=== PATIENT | female | born 1985 | race Caucasian/White ===

== ENCOUNTER → 2017-07-02 19:19 | Outpatient (CLI) | payer OTHER, SELFPAY ==
[2017-07-07 14:42] LABS: HPV APTIMA, High Risk Negative (Negative)
== END ==
PROVIDERS: Visit Provider Obstetrics & Gynecology
DX: Z12.4 Encounter for screening for malignant neoplasm of cervix (principal)
CPT/HCPCS: 88175; G0145

== ENCOUNTER → 2017-12-03 11:56 | Outpatient (CLI) | payer OTHER, SELFPAY ==
[2017-12-03 18:11] LABS: Chlamydia Trachomatis by PCR Negative (Negative); Neisserai gonorrhoeae by PCR Negative (Negative); Probe Check PASS; Sample Adequacy Control PASS; Specimen Processing Control PASS
== END ==
PROVIDERS: Visit Provider Obstetrics & Gynecology
DX: Z11.3 Encounter for screening for infections with a predominantly sexual mode of transmission (principal)
CPT/HCPCS: 87491; 87591

== ENCOUNTER → 2017-12-18 11:10 | Outpatient (CLI) | payer OTHER, SELFPAY ==
[2017-12-18 13:42] LABS: Color, Urine Straw (Yellow); Glucose, Dipstick Normal (Normal); Ketone-Dipstick Negative (Negative); Leukocyte Esterase-Dipstick Negative /ul (Negative); Nitrite-Dipstick Negative (Negative); Occult Blood-Urine Negative /ul (Negative); Protein-Dipstick Negative (Negative); Specific Gravity, Urine 1.015 (1.002-1.030); Urine Bilirubin Dipstick Negative (Negative); Urine Clarity Clear (Clear); Urine Urobilinogen Normal (Normal)
[2017-12-18 13:47] LABS: Absolute Lymphocyte Count 1.88 X10^3/ul (0.83-4.51); Absolute Neutrophil Count 4.1 X10^3/uL (2.0-7.7); Basophil# 0.01 X10^3/uL; Basophil% 0.1 % (0-1); Eosinophil# 0.04 X10^3/uL; Eosinophils% 0.6 % (0-5); Hematocrit 39.4 % (37-47); Hemoglobin 13.5 g/dl (12.0-15.0); Lymphocyte # 1.88 X10^3/ul (4.0); Lymphocyte % 27.7 % (19-41); Mean Corp Hgb Conc 34.3 g/gl (32-36); Mean Corpuscular Volume 87.6 fL (81-99); Monocyte% 11.8 % (0-10); Neutrophil # 4.06 X10^3/uL (2.7-7.7); Neutrophil % 59.8 % (47-70); POSITIVE COUNT NO; POSITIVE DIFFERENTIAL NO; POSITIVE MORPHOLOGY NO; Platelet Count 198 K/mm3 (150-450); RBC Distribution Width CV 12.7 % (11.6-14.6); RBC Distribution Width SD 39.5 fl (35.1-43.9); White Blood Count 6.8 K/mm3 (4.4-11.0)
[2017-12-18 14:06] LABS: Thyroid Stim Hormone (TSH) 0.94 uIU/mL (0.358-3.74)
[2017-12-18 14:19] LABS: Amphetamine Urine VISTA NEGATIVE (<1000 ng/mL); Barbiturate Urine VISTA NEGATIVE (< 200 ng/mL); Benzodiazepine Urine VISTA NEGATIVE (< 200 ng/mL); Cocaine Urine VISTA NEGATIVE (< 300 ng/mL); Ecstacy Urine VISTA NEGATIVE (< 500 ng/mL); Methadone Urine VISTA NEGATIVE (< 300 ng/mL); PCP Urine VISTA NEGATIVE (< 25 ng/mL); THC Urine VISTA NEGATIVE (< 50 ng/mL); Vista UDS pH Range 5
[2017-12-18 15:02] LABS: HIV - WCH Non-Reactive (Nonreactive); Rubella IgG 33.4 IU/mL
[2017-12-21 12:43] LABS: HEPATITIS B SURFACE AG Negative (Negative); Hep C Antibodies 0.1 s/co ratio (0.0-0.9)
[2017-12-25 03:42] LABS: Prenatal RPR NONREACTIVE (NONREACTIVE)
== END ==
PROVIDERS: Visit Provider Obstetrics & Gynecology
DX: Z34.81 Encounter for supervision of other normal pregnancy, first trimester (principal)
CPT/HCPCS: 36415; 80307; 81002; 84443; 85025; 86703; 86762; 86803; 87340

== ENCOUNTER → 2018-05-03 16:16 | Outpatient (CLI) | payer OTHER, SELFPAY ==
[2018-05-03 17:51] LABS: Hematocrit 35.6 % (37-47); Hemoglobin 11.9 g/dl (12.0-15.0); Mean Corp Hgb Conc 33.4 g/gl (32-36); Mean Corpuscular Volume 92.7 fL (81-99); Mean Platelet Vol. 10.4 fl (6.2-12.0); Platelet Count 177 K/mm3 (150-450); RBC Distribution Width CV 13.5 % (11.6-14.6); RBC Distribution Width SD 45.2 fl (35.1-43.9); Red Blood Count 3.84 M/mm3 (4.2-5.4)
[2018-05-03 18:03] LABS: Scan Indicated on CBC? Y/N NO
[2018-05-03 18:07] LABS: Glucose Challenge Gest 1H 50g 127 mg/dL (70-140)
== END ==
PROVIDERS: Visit Provider Obstetrics & Gynecology
DX: Z34.83 Encounter for supervision of other normal pregnancy, third trimester (principal)
CPT/HCPCS: 36415; 82950; 85027

== ENCOUNTER → 2018-07-01 17:52 | Outpatient (CLI) | payer OTHER, SELFPAY | PROVIDERS: Family Provider Family Medicine; PCP Family Medicine; Referring Provider Obstetrics & Gynecology; Visit Provider Obstetrics & Gynecology | DX: Z36.85 Encounter for antenatal screening for Streptococcus B (principal) | CPT/HCPCS: 87081 ==

== ENCOUNTER 2018-07-25 05:38 | Inpatient (IN) | payer OTHER, SELFPAY ==
[2018-07-25 04:46] VITALS: BMI 25.4
[2018-07-25 05:36] LABS: ROM Internal Control Test YES-OK TO RESULT pt. (Internal QC)
[2018-07-25 05:37] LABS: ROM Patient Test POSITIVE (Negative); Record Kit Lot#, ROM+ J7836
[2018-07-25] MEDS: Lactated Ringers 1,000 ML 50 ML IV ×4 (06:10→17:50)
[2018-07-25 06:57] LABS: Absolute Lymphocyte Count 1.96 X10^3/ul (0.83-4.51); Absolute Neutrophil Count 13.7 X10^3/uL (2.0-7.7); Basophil# 0.01 X10^3/uL; Basophil% 0.1 % (0-1); Eosinophil# 0.03 X10^3/uL; Eosinophils% 0.2 % (0-5); Hematocrit 38.1 % (37-47); Hemoglobin 12.8 g/dl (12.0-15.0); Lymphocyte # 1.96 X10^3/ul (4.0); Lymphocyte % 10.6 % (19-41); Mean Corp Hgb Conc 33.6 g/gl (32-36); Mean Corpuscular Hgb 30.3 pg (27.0-32.0); Mean Corpuscular Volume 90.1 fL (81-99); Mean Platelet Vol. 11.3 fl (6.2-12.0); Monocyte# 2.79 X10^3/uL; Monocyte% 15.1 % (0-10); Neutrophil # 13.69 X10^3/uL (2.7-7.7); Neutrophil % 73.7 % (47-70); Platelet Count 210 K/mm3 (150-450); RBC Distribution Width CV 13.7 % (11.6-14.6); RBC Distribution Width SD 44.8 fl (35.1-43.9); Red Blood Count 4.23 M/mm3 (4.2-5.4); White Blood Count 18.5 K/mm3 (4.4-11.0)
[2018-07-25 06:58] LABS: Differential Indicated SCAN CRITERIA MET; POSITIVE COUNT NO; POSITIVE DIFFERENTIAL YES; POSITIVE MORPHOLOGY NO
[2018-07-25] MEDS: fentaNYL-bupivacaine (epidural) 100 ML BAG EPIDURAL ×2 (08:55→13:30)
--- NOTE | 2018-07-25 09:59 | PN.OBGYN_ITS ---
Subjective: Cervix examined and noted to be dimple from prior cervical procedure likely LEEP per patient history. Examination revealed band and this was relieved with cervical examination. Cervix now 4-5 cm 95% 0 station. IUPC placed. Epidural working well for her. Anticipate spontaneous vaginal delivery. - Physical Exam Weight: 144 lb Body Mass Index (BMI) 25.4 Laboratory Tests Past 24 Hrs 07/25/18 07/25/18 07/25/18 04:35 06:10 06:10 WBC 18.5 H RBC 4.23 Hgb 12.8 Hct 38.1 MCV 90.1 MCH 30.3 MCHC 33.6 RDW 13.7 RDW Differential 44.8 H Plt Count 210 MPV 11.3 Immature Gran % (Auto) 0.300 Neut % (Auto) 73.7 H Lymph % (Auto) 10.6 L [place] % (Auto) 15.1 H Eos % (Auto) 0.2 Baso % (Auto) 0.1 Absolute Neuts (auto) 13.7 H Absolute Lymphs (auto) 1.96 Total Counted Not Reportable Differential Comment Vag Amniotic Fld Detect POSITIVE H Blood Type O POSITIVE Antibody Screen NEGATIVE Medical Necessity - Tobacco Use Smoking Status: Never smoker
[2018-07-25] MEDS: Mag Hydrox/Al Hydrox/Simeth 30 ML UDC PO (15:13)
[2018-07-25] MEDS: Oxytocin 30 units/NS 500 ml 30 UNITS/500 ML IV.SOLN IV (16:49)
[2018-07-25] MEDS: Oxytocin 30 units/NS 500 ml 30 UNITS/500 ML IV.SOLN 334 UNITS IV (19:19)
--- NOTE | 2018-07-25 19:36 | PCM.OPRPT ---
Vaginal Delivery Maternal Presentation: Active Labor, Spontaneous Rupture of Membranes Amniotic Membrane Rupture Type: Spontaneous at home Amniotic Fluid Description: Clear Final TORI: 07/25/18 Final TORI Source: US <20 weeks Gestational age: 40 Weeks and 0 Days doctor who attended delivery (if requested by OB): Addis Zapien Vacuum assist Date of Procedure: 07/25/18 Pre-Operative Diagnosis: IUP Post-Operative Diagnosis: IUP Surgery/ Procedure Performed: Spontaneous Vaginal Delivery, Vacuum Assisted Vaginal Delivery Type of Anesthesia: Epidural Description of Procedure: Spontaneous vaginal delivery of a viable male with Apgars of 8/9 from an occiput anterior presentation with clear amniotic fluid and normal three-vessel placenta. Cord around the neck x1 loose. No episiotomy. Third-degree midline laceration repaired in layers with 3-0 Rapide and Vicryl under epidural. Kiwi vacuum used x6 gentle pulls from low outlet with no pop offs to assist with delivery of the head due to increasing maternal fatigue after approximately 4 hours of pushing. Sponges okay. Delivery physician: Shivam Fuentes MD. Presentation: Vertex Placental Delivery Description: Spontaneous Placenta Disposition: [facility] Cord Vessel Description: 3 Vessels Cord Gases drawn per routine: ABG Cord Entanglement: Around neck x 1, loose Drain: Iglesias to straight drain Estimated Blood Loss: 400 cc Infant A gender: Male (1 minute): 8 (5 minute): 9 Episiotomy Description: None Laceration: Midline, Perineal Extension/lac, 3rd degree Medications given after delivery: IV Pitocin Complications: None
[2018-07-25] MEDS: Lactated Ringers 1,000 ML 999 ML IV (19:38)
[2018-07-25] MEDS: Oxytocin 30 units/NS 500 ml 30 UNITS/500 ML IV.SOLN 167 UNITS IV (19:39)
[2018-07-25] MEDS: Ibuprofen 600 MG Tablet PO (22:18)
[2018-07-25] MEDS: 0.9% Saline Lock 10 ML Syringe IV (22:19)
[2018-07-26 01:40] VITALS: BP 114/59; PULSE 82; RESP 16; TEMP 36.2
[2018-07-26 05:30] VITALS: BP 104/56; PULSE 86; RESP 16; TEMP 36.7
[2018-07-26 06:34] LABS: Hematocrit 31.9 % (37-47); Hemoglobin 10.5 g/dl (12.0-15.0); Mean Corp Hgb Conc 32.9 g/gl (32-36); Mean Corpuscular Hgb 29.7 pg (27.0-32.0); Mean Corpuscular Volume 90.4 fL (81-99); Mean Platelet Vol. 10.8 fl (6.2-12.0); Platelet Count 239 K/mm3 (150-450); RBC Distribution Width CV 13.8 % (11.6-14.6); RBC Distribution Width SD 45.4 fl (35.1-43.9); Red Blood Count 3.53 M/mm3 (4.2-5.4)
[2018-07-26 06:44] LABS: Scan Indicated on CBC? Y/N YES- FLAGS NOTED
[2018-07-26 06:45] LABS: White Blood Count 36.7 K/mm3 (4.4-11.0)
[2018-07-26 07:06] LABS: Differential Comment SCANNED
[2018-07-26 07:40] VITALS: BP 108/54; PULSE 112; PULSE 84; RESP 16; TEMP 37.4; O2SAT 98
--- NOTE | 2018-07-26 07:40 | PCM.PN.OB ---
Subjective: Perineum is sore. Reports heavy lochia however not saturated after 2 hours. She is nursing, latching well. No fever, chills. OOB, voiding without difficulty. Objective: AVSS - Physical Exam General: Alert, Oriented x3, Cooperative, No apparent distress HEENT: Atraumatic, Normocephalic Lungs: Normal air movement Cardiovascular: Regular Rhythm Abdomen: Soft, Non Tender, Non-Distended, - - Fundus firm and nontender, lochia scant, vulvar edema present Extremities: No edema, No Calf Tenderness Neurological: Neuro grossly intact Psych/Mental Status: Normal Affect, Appropriate, Alert and oriented to time, place, person, mood and affect Vital Signs Temp Pulse Resp BP 98.1 F 86 16 104/56 L 07/26/18 05:30 07/26/18 05:30 07/26/18 05:30 07/26/18 05:30 Oxygen Delivery Method Room Air Weight: 65.317 kg Body Mass Index (BMI) 25.4 Intake and Output for Last 24 Hours 07/24/18 07/25/18 07/26/18 23:59 23:59 23:59 Intake Total 3620 / 3620 Output Total 1500 / 1500 3900 / 3900 Balance 2120 / 2120 -3900 / -3900 Laboratory Tests Past 24 Hrs 07/25/18 07/26/18 06:10 06:15 WBC 36.7 H* RBC 3.53 L Hgb 10.5 L Hct 31.9 L MCV 90.4 MCH 29.7 MCHC 32.9 RDW 13.8 RDW Differential 45.4 H Plt Count 239 MPV 10.8 Differential Comment SCANNED Diff Path Review May foll Blood Type O POSITIVE Antibody Screen NEGATIVE Medical Necessity - Tobacco Use Smoking Status: Never smoker Assessment/Plan 33yo PPD#1 s/p VAVD with 3rd degree perineal laceration - -Rh positive, Rubella immune -Ambulation encouraged -Discussed perineal care -Routine care -Leukocytosis likely 2/2 labor, delivery - no prolonged rupture or evidence of infection, plan repeat cbc in am
--- NOTE | 2018-07-26 11:20 | NURSING ---
The Pt c/o sore nipples. This student nurse provided Pt with nipple cream.
[2018-07-26 11:45] LABS: Pathologist Review Reviewed
[2018-07-26 13:00] VITALS: BP 122/74; PULSE 80; RESP 18; TEMP 36.7; O2SAT 97
[2018-07-26 16:08] VITALS: BP 116/62; PULSE 80; RESP 17; TEMP 36.9; O2SAT 97
[2018-07-26 20:50] VITALS: BP 116/70; PULSE 82; RESP 18; TEMP 36.7
[2018-07-26] MEDS: Ibuprofen 600 MG Tablet PO (23:55)
[2018-07-27 01:48] VITALS: BP 104/50; PULSE 76; RESP 18; TEMP 36.6
[2018-07-27 05:55] LABS: Absolute Lymphocyte Count 3.64 X10^3/ul (0.83-4.51); Absolute Neutrophil Count 11.8 X10^3/uL (2.0-7.7); Basophil# 0.03 X10^3/uL; Basophil% 0.2 % (0-1); Eosinophil# 0.26 X10^3/uL; Eosinophils% 1.5 % (0-5); Hematocrit 26.4 % (37-47); Hemoglobin 8.7 g/dl (12.0-15.0); Lymphocyte # 3.64 X10^3/ul (4.0); Lymphocyte % 20.4 % (19-41); Mean Corpuscular Hgb 30.7 pg (27.0-32.0); Mean Corpuscular Volume 93.3 fL (81-99); Mean Platelet Vol. 10.1 fl (6.2-12.0); Monocyte# 1.98 X10^3/uL; Monocyte% 11.1 % (0-10); Neutrophil # 11.82 X10^3/uL (2.7-7.7); Neutrophil % 66.2 % (47-70); Platelet Count 200 K/mm3 (150-450); RBC Distribution Width CV 13.6 % (11.6-14.6); RBC Distribution Width SD 45.1 fl (35.1-43.9); Red Blood Count 2.83 M/mm3 (4.2-5.4); White Blood Count 17.8 K/mm3 (4.4-11.0)
[2018-07-27 06:00] LABS: Differential Indicated SCAN CRITERIA MET; POSITIVE COUNT NO; POSITIVE DIFFERENTIAL YES; POSITIVE MORPHOLOGY YES
[2018-07-27 06:37] LABS: Differential Comment SCAN
[2018-07-27 07:42] VITALS: BP 111/65; PULSE 87; RESP 18; TEMP 36.7; O2SAT 97
--- NOTE | 2018-07-27 07:45 | PCM.PN.OB ---
Subjective: PPD#2 Vaginal delivery, vacuum assisted. Doing well. no Nausea. Denies any dizziness or weakness with ambulation. Breast feeding well. Objective: Baby nursing - Physical Exam General: Alert, Oriented x3, Cooperative, No apparent distress HEENT: Atraumatic Neck: Supple Neurological: Cranial nerves II-XII grossly intact Psych/Mental Status: Normal Affect Vital Signs Temp Pulse Resp BP Pulse Ox 97.9 F 76 18 104/50 L 97 07/27/18 01:48 07/27/18 01:48 07/27/18 01:48 07/27/18 01:48 07/26/18 16:08 Oxygen Delivery Method Room Air Weight: 65.317 kg Body Mass Index (BMI) 25.4 Intake and Output for Last 24 Hours 07/25/18 07/26/18 07/27/18 23:59 23:59 23:59 Intake Total 3620 / 3620 Output Total 1500 / 1500 3900 / 3900 Balance 2120 / 2120 -3900 / -3900 Laboratory Tests Past 24 Hrs 07/26/18 07/27/18 06:15 05:35 WBC 17.8 H RBC 2.83 L Hgb 8.7 L Hct 26.4 L MCV 93.3 MCH 30.7 MCHC 33.0 RDW 13.6 RDW Differential 45.1 H Plt Count 200 MPV 10.1 Immature Gran % (Auto) 0.600 Neut % (Auto) 66.2 Lymph % (Auto) 20.4 [place] % (Auto) 11.1 H Eos % (Auto) 1.5 Baso % (Auto) 0.2 Absolute Neuts (auto) 11.8 H Absolute Lymphs (auto) 3.64 Total Counted Not Reportable Differential Comment SCAN Diff Path Review Reviewed May Medical Necessity - Tobacco Use Smoking Status: Never smoker Assessment/Plan PPD#2 vaginal delivery. Stable , with acute blood loss anemia. Clinically stable, VSS and no issues reported by patient. Home today. RTO in 6 wk for PP check.
--- NOTE | 2018-07-27 07:48 | PCM.DCVAG ---
Discharge Diet: No Restrictions Discharge Activity: Return to Normal Activity May resume sexual activity in: 4-6 weeks Additional Instructions: If you experience any of the following, contact your healthcare provider. Bleeding that soaks a pad every hour for 2 hours Fever 100.4 or higher Unrelieved abdominal pain Problems urinating (including inability to urinate or burning while urinating). Visual changes Severe headache Flu-like symptoms Pain or redness in one of both of your breasts Pain, warmth, tenderness or swelling in your legs, especially the calf area Frequent nausea and vomiting Symptoms of depression or anxiety If you experience any of the following, call 911 or go to the nearest Emergency Room. Chest pain Problems breathing Seizure activity Partial or complete paralysis of a body part, slurred speech, weakness or drooping of the face, or a sudden inability to walk or hold your balance Allergies/Adverse Reactions: Allergies No Known Allergies Allergy (Verified 07/25/18 04:47) Medications to take at Discharge Docusate Sodium [Colace] 100 mg PO BID PRN PRN #60 cap 07/25/18 Oxycodone [Oxyir] 5 mg PO Q6H PRN PRN 7 Days #10 tab 07/25/18 Tablet 1 tab PO DAILY 07/25/18 Acetaminophen [Tylenol] 1,000 mg PO Q8H PRN PRN tablet 07/27/18 Ferrous Gluconate 324 mg PO DAILY PRN #30 tablet 07/27/18 Ibuprofen [Motrin] 600 mg PO Q6H PRN PRN tablet 07/27/18 The following prescriptions were given: Oxycodone [Oxyir] 5 mg PO Q6H PRN PRN 7 Days #10 tab PRN Reason: Severe Pain (-01/27) Docusate Sodium [Colace] 100 mg PO BID PRN PRN #60 cap PRN Reason: Constipation Ferrous Gluconate 324 mg PO DAILY PRN #30 tablet Please Follow Up With: Marce Louis MD - [phone] When: Call to make an appointment with your doctor in 6 weeks. Primary Care Physician: Kori Contreras MD [Primary Care Provider] - Test Results: Test results from this visit will be discussed in further detail at your follow-up appointment, if applicable. Proposed Discharge Date: 07/27/18
--- NOTE | 2018-07-27 07:51 | DCINST_ITS ---
Discharge Diet: No Restrictions Discharge Activity: Return to Normal Activity May resume sexual activity in: 4-6 weeks Additional Instructions: If you experience any of the following, contact your healthcare provider. * Bleeding that soaks a pad every hour for 2 hours * Fever 100.4 or higher * Unrelieved abdominal pain * Problems urinating (including inability to urinate or burning while urinating). * Visual changes * Severe headache * Flu-like symptoms * Pain or redness in one of both of your breasts * Pain, warmth, tenderness or swelling in your legs, especially the calf area * Frequent nausea and vomiting * Symptoms of depression or anxiety If you experience any of the following, call 911 or go to the nearest Emergency Room. * Chest pain * Problems breathing * Seizure activity * Partial or complete paralysis of a body part, slurred speech, weakness or drooping of the face, or a sudden inability to walk or hold your balance Allergies/Adverse Reactions: Allergies No Known Allergies Allergy (Verified 07/25/18 04:47) Medications to take at Discharge Docusate Sodium [Colace] 100 mg PO BID PRN PRN #60 cap 07/25/18 Oxycodone [Oxyir] 5 mg PO Q6H PRN PRN 7 Days #10 tab 07/25/18 Tablet 1 tab PO DAILY 07/25/18 Acetaminophen [Tylenol] 1,000 mg PO Q8H PRN PRN tablet 07/27/18 Ferrous Gluconate 324 mg PO DAILY PRN #30 tablet 07/27/18 Ibuprofen [Motrin] 600 mg PO Q6H PRN PRN tablet 07/27/18 The following prescriptions were given: Oxycodone [Oxyir] 5 mg PO Q6H PRN PRN 7 Days #10 tab PRN Reason: Severe Pain (-01/27) Docusate Sodium [Colace] 100 mg PO BID PRN PRN #60 cap PRN Reason: Constipation Ferrous Gluconate 324 mg PO DAILY PRN #30 tablet Please Follow Up With: Marce Louis MD - [phone] When: Call to make an appointment with your doctor in 6 weeks. Primary Care Physician: Kori Contreras MD [Primary Care Provider] - Test Results: Test results from this visit will be discussed in further detail at your follow- up appointment, if applicable. Proposed Discharge Date: 07/27/18
[2018-07-27 12:24] LABS: Pathologist Review Reviewed
[2018-07-27 12:35] LABS: Pathologist Review Reviewed
[2018-07-27 13:30] VITALS: BP 131/83; PULSE 97; RESP 18; TEMP 36.8; O2SAT 97
== END 2018-07-27 14:10 | disposition home or self-care (01) | DRG 768 ==
LOC: WPOUT 05:39 → WP 05:39
PROVIDERS: Obstetrics & Gynecology; Admitting Provider Obstetrics & Gynecology; Family Provider Family Medicine; PCP Family Medicine; Referring Provider Obstetrics & Gynecology; Visit Provider Obstetrics & Gynecology
DX: O69.81X0 Labor and delivery complicated by cord around neck, without compression, not applicable or unspecified (principal); Z37.0 Single live birth; O70.20 Third degree perineal laceration during delivery, unspecified; D62 Acute posthemorrhagic anemia; O48.0 Post-term pregnancy; Z3A.40 40 weeks gestation of pregnancy; O90.81 Anemia of the puerperium; O90.89 Other complications of the puerperium, not elsewhere classified; D72.829 Elevated white blood cell count, unspecified
CPT/HCPCS: 59025; 59050; 84112; 85025; 85027; 86850; 86900; 99218; J7120; A4216; G0378